=== PATIENT | female | born 1970 | race Caucasian/White ===

== ENCOUNTER 2017-02-18 | Emergency (ER) | payer OTHER ==
[~2017-02-18] MED LIST: ALPRAZOLAM; AMOXICILLIN500 M1 PO; ANTIBIOTIC; DEPAKOTE; GEODAN; LORTAB 5/500 TA1 TA1 PO; ORUDIS75 M1 DOB; PAIN MED; PENICILLIN; PHENERGAN; PHENERGAN25 MG PO; ULTRAM PO; VOLTAREN75 MG PO; [UNRECOGNIZED DRUG - REMARK]
== END 2017-02-18 00:25 | disposition left against medical advice (07) ==
LOC: CED
DX: Z53.21 Procedure and treatment not carried out due to patient leaving prior to being seen by health care provider (principal)